=== PATIENT | female | born 1970 | race Caucasian/White ===

== ENCOUNTER 2023-07-13 15:14 | Emergency (ER) | payer BC, SELFPAY ==
--- NOTE | ~2023-07-13 | XR_ITS ---
EXAMINATION: XR shoulder RT min 2V DATE: 07/13/2023 16:25 INDICATION: Right shoulder pain. TECHNIQUE: 4 views of right shoulder were obtained. COMPARISON: None. FINDINGS: Bone alignment is normal. No fracture. There is mild osteoarthritis of the acromioclavicula r joint and glenohumeral joint. IMPRESSION: 1. Mild polyarticular osteoarthritis. Reviewed, dictated and finalized at location E.
[2023-07-13 15:39] VITALS: BP 132/86; PULSE 93; RESP 18; TEMP 36.8; O2SAT 97
--- NOTE | 2023-07-13 15:47 | ED.UPPEXIN ---
HPI - Extremity Injury (Upper) General Chief Complaint: Extremity Problem,Nontraumatic Stated Complaint: right shoulder pain Time Seen by Provider: 07/13/23 15:23 Source: patient Mode of arrival: ambulatory Limitations: no limitations History of Present Illness HPI narrative: 53-year-old female presents to [facility] with complaints of right shoulder pain which started approximately 8 months ago. Patient reports that she is unsure of the exact injury which occurred a month ago. Patient reports that the pain becasme much more severe this weekend after she worked long hours at work. 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 patient has been taking [id number] Motrin and applying [id number] pain patch with little relief. Patient denies decreased range of motion but reports that the pain increases with range of motion. Patient denies swelling, bruising, erythema, numbness or tingling. MD complaint: injury to: right and shoulder Onset (ago): month(s) (8) Other injuries: none Relieving factors: rest Exacerbating factors: movement of extremity Associated symptoms: denies other symptoms Treatments prior to arrival: NSAIDS Related Data Allergies Allergy/AdvReac Type Severity Reaction Status Date / Time latex Allergy Unknown Unknown Verified 07/13/23 15:29 Review of Systems Constitutional: Constitutional: Denies chills, Denies fatigue, Denies fever(s) and Denies weakness ENT: Denies dizziness Cardiovascular: Cardiovascular: Denies chest pain Respiratory: Respiratory: Denies cough, Denies dyspnea and Denies wheezing Gastrointestinal: Gastrointestinal: Denies diarrhea, Denies nausea and Denies vomiting Musculoskeletal: Musculoskeletal: Denies back pain, Denies myalgias, Reports arthralgias and Denies joint swelling Comments: Right shoulder pain Integumentary/Breasts: Skin/Breast: Denies pruritus, Denies erythema and Denies rash Neurologic: Denies vertigo, Denies dizziness, Denies syncope and Denies headache(s) [facility] Family History Family History Father Family history of elevated blood lipids Family history of diabetes mellitus in first degree relative Mother Family history of elevated blood lipids Social History Social History Alcohol intake: current Comments At time of signature, I agree with nursing past medical, surgical, social and family history. There is no relevant family history pertinent to the presenting complaint. Exam Const: General: healthy appearing and no acute distress Nutritional Appearance: well nourished Orientation/consciousness: patient oriented x3 Limitations: no limitations Neck: Neck: normal visual inspection Resp: Effort & Inspection: normal respiratory effort and not labored Auscultation: clear to auscultation bilaterally, no crackles, no rales, no rhonchi and no wheezes Cardio: Rate: regular rate Rhythm: regular rhythm Heart sounds: no murmurs Skin: General skin exam: normal color Rashes: no rashes Wounds: no wounds Neuro: General: patient oriented x3 Speech: normal speech Gait exam (Neuro): Normal gait present Extrem: General: normal to inspection, no clubbing, cyanosis or edema and no pedal edema Other: No erythema, swelling, bruising or wounds noted to right shoulder. pulses are within normal limits. full range of motion noted to right shoulder. Psych: Affect: normal affect Attitude: cooperative Course Course Level of Care: Express Care Visit Vital Signs Vital signs: Vital Signs Temperature 36.8 C 07/13/23 15:39 Pulse Rate 93 07/13/23 15:39 Respiratory Rate 18 07/13/23 15:39 Blood Pressure 132/86 07/13/23 15:39 Pulse Oximetry 97 07/13/23 15:39 Oxygen Delivery Room Air 07/13/23 15:39
== END 2023-07-13 16:44 | disposition home or self-care (01) ==
PROVIDERS: Emergency Provider Nurse Practitioner Family
DX: M25.511 Pain in right shoulder (principal)
CPT/HCPCS: 73030; 99213; A4565; G0463